=== PATIENT | male | born 1955 | race Two or more races ===

== ENCOUNTER 2016-04-30 07:22 | Day surgery (SDC) | payer OTHER ==
[2016-04-30] MEDS ORDERED: fentaNYL 100 MCG/2 ML INJ ONE ×2 (07:53→10:12)
[2016-04-30] MEDS ORDERED: MIDAZOLAM 2 MG/2 ML VIAL ONE ×2 (07:53→10:13)
[2016-04-30] MEDS ORDERED: LIDO/EPI 1% **for epidural** 30 ML SDV ONE (08:24)
[2016-04-30] MEDS ORDERED: SODIUM TETRADECYL SULFATE 60 MG/2 ML VIAL IV ONE (08:24)
[2016-04-30] MEDS ORDERED: CEFAZOLIN 2 GM/DEXTROSE/100 ML BAG IV ONE (09:52)
[2016-04-30] MEDS ORDERED: LABETALOL HCL 5 MG/ML 20 ML MDV ONE (11:40)
[2016-04-30] MEDS ORDERED: IBUPROFEN 200 MG TAB PO ONE ×2 (13:31→13:34)
[2016-04-30] MEDS ORDERED: ONDANSETRON 4 MG/2 ML VIAL IVP PRN (13:34)
[2016-04-30] MEDS ORDERED: HYDROCODONE/APAP 5/325 TAB PO PRN (13:34)
[2016-04-30] MEDS ORDERED: ONDANSETRON DISINTEGRATING 4 MG TAB PO PRN (13:35)
[2016-04-30] MEDS ORDERED: IOPAMIDOL (ISOVUE-300) 100 ML BTL IV ONE (15:43)
--- NOTE | 2016-04-30 20:05 | IR ---
Bilateral Laser Ablation, Great Saphenous Veins Indication: Extensive the bilateral lower extremity venous stasis cellulitis and ulceration. Please s ee prior ultrasound for details. Informed consent: Obtained from the patient. Risks and benefits were discussed. Crosscutting Measure: Patient's current list of medications including all known prescriptions, over- the-counters, herbals, and vitamin/mineral/dietary supplements are reviewed. Medications' name, dosa ge, frequency, and route of administration are confirmed. Patient is a non-smoker. Prophylactic Antibiotic: Ancef 2 gm was ordered and administered for antimicrobial prophylaxis. Discontinuation of Prophylactic Antibiotic: Prophylactic antibiotic was given within 4 hours prior t o incision. There was an order to discontinue the antibiotic within 24 hours of procedure end time. VTE Prophylaxis: VTE prophylaxis is not medically necessary for this procedure. Technique: Patient is placed in supine position. A "timeout" procedure was performed to identify th e correct patient and the correct procedure. 1% Xylocaine was used for local anesthetic. All elemen ts of maximal sterile barrier technique including cap, mask, sterile gown, sterile gloves, large ster ile sheet, hand hygiene, and 2% chlorhexidine for cutaneous antisepsis, followed. When ultrasound is used, sterile gel and probe covers are used. Ultrasound evaluation of potential access site was performed. After successfully identifying a patent vessel, ultrasound guidance was used to puncture the vessel. A permanent recording was created for t he patient's record. When ultrasound is used, sterile gel and probe covers are used. This procedure was performed with a combination of ultrasound and fluoroscopy. Because of patient's b neno habitus, I was not able to see the saphenofemoral junction very well with ultrasound alone. Once the great saphenous veins are accessed under ultrasound guidance at the level of the proximal ca lf on each side, Glidewire is advanced into the deep system. A straight tipped 5-Armenian end-hole cath eter is advanced over the Glidewire, and the wire was removed. Contrast was injected as the catheter was pulled back, identifying saphenofemoral junction, with the catheter subsequently pulled back 2 cm from saphenofemoral junction. Prior to this, laser wire was advanced through the catheter, and locked in place with a Please review [trocar device] and a Ta-Kylah, with the tip extending 1 cm from the tip of the catheter. Once the catheter tip is in good position, the laser wire was advanced with the Tam and yvette e review [torquer] device in place. Once the entire system is locked together, we know the tip of the laser is a centimeter beyond the tip of the catheter. The laser is not radiopaque, therefore, its pl acement cannot be confirmed by fluoroscopy. The next challenge was tumescent anesthesia. I really had to guesstimate where to inject the tumescen t. This was done for the most part using landmarks, and under ultrasound guidance. This is also done using a 22-gauge spinal needle. After tumescent anesthesia is delivered, laser ablation was performed. Patient tolerated it very well . It seems that the tumescent anesthesia was indeed adequate throughout the course of the great saphe nous system on both sides. 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 I do not at this time feel need to treat this demolition hammer operator any further. Patient's wounds were dressed in standard fashion and wrapped. Pantyhose compression stocking was the n put on with the help of the patient. Fluoroscopy: 1.8 minutes, 3 images. Medication: 4.5 mg Versed, 2 25 mcg fentanyl, -03 11 Impression: 1. Combined ultrasound-guided and fluoroscopy guided great saphenous vein ablation of both legs from calf to saphenofemoral junction. 2. No additional vessels that would need to be treated at this time. Plan: 1. Pantyhose compression stocking for the next 5 days, 24 hours. 2. Wound care follow up next Thursday as previously planned. 3. Knee high compression stocking and minimal after 5 days until wounds heal.
== END 2016-04-30 15:15 | disposition home or self-care (01) ==
LOC: FIMAGING 07:22
PROVIDERS: ATTEND Surgery
PROC: 065Q3ZZ Destruction of Left Saphenous Vein, Percutaneous Approach (ICD-10-PCS; principal; 2016-04-30 13:00)
PROC: 065P3ZZ Destruction of Right Saphenous Vein, Percutaneous Approach (ICD-10-PCS; principal; 2016-04-30 13:00)
DX: I83.019 Varicose veins of right lower extremity with ulcer of unspecified site (principal); I83.029 Varicose veins of left lower extremity with ulcer of unspecified site
CPT/HCPCS: 36478; 99152; 99153; C1769; J0690; J2250; J2405; J3010; J3490; Q9967

== ENCOUNTER → 2016-07-01 | Outpatient (CLI) | payer OTHER | LOC: FIMAGING 11:13 | PROVIDERS: ATTEND Radiology Diagnostic Radiology | DX: I82.813 Embolism and thrombosis of superficial veins of lower extremities, bilateral (principal) ==

== ENCOUNTER 2016-07-22 11:20 | Day surgery (SDC) | payer OTHER ==
[2016-07-22] MEDS ORDERED: ONDANSETRON 4 MG/2 ML VIAL IVP ONE (11:44)
[2016-07-22] MEDS ORDERED: NS 1,000 ML IV ONE (11:44)
[2016-07-22] MEDS ORDERED: MIDAZOLAM 2 MG/2 ML VIAL ONE ×2 (12:19→14:13)
[2016-07-22] MEDS ORDERED: fentaNYL 100 MCG/2 ML INJ ONE ×2 (12:19→14:12)
[2016-07-22] MEDS ORDERED: SODIUM TETRADECYL SULFATE 60 MG/2 ML VIAL IV ONE (12:45)
[2016-07-22] MEDS ORDERED: LIDO/EPI 1% **for epidural** 30 ML SDV ONE (12:45)
== END 2016-07-22 15:55 | disposition home or self-care (01) ==
LOC: FIMAGING 11:20
PROVIDERS: ATTEND Radiology Diagnostic Radiology
DX: I83.012 Varicose veins of right lower extremity with ulcer of calf (principal); L97.219 Non-pressure chronic ulcer of right calf with unspecified severity; I83.013 Varicose veins of right lower extremity with ulcer of ankle; L97.319 Non-pressure chronic ulcer of right ankle with unspecified severity; I83.022 Varicose veins of left lower extremity with ulcer of calf; L97.229 Non-pressure chronic ulcer of left calf with unspecified severity; I83.023 Varicose veins of left lower extremity with ulcer of ankle; L97.329 Non-pressure chronic ulcer of left ankle with unspecified severity
CPT/HCPCS: J2250; J3010

== ENCOUNTER → 2016-11-07 | Day surgery (SDC) | payer OTHER ==
[~2016-11-07] MED LIST: SODIUM TETRADECYL SULFATE 60 MG/2 ML VIAL IV ONE
== END | disposition home or self-care (01) ==
LOC: FIMAGING 08:12
PROVIDERS: ATTEND Radiology Diagnostic Radiology
PROC: 3E033TZ Introduction of Destructive Agent into Peripheral Vein, Percutaneous Approach (ICD-10-PCS; principal; 2016-11-07)
DX: I83.019 Varicose veins of right lower extremity with ulcer of unspecified site (principal); I83.892 Varicose veins of left lower extremity with other complications; L97.919 Non-pressure chronic ulcer of unspecified part of right lower leg with unspecified severity; L03.116 Cellulitis of left lower limb; R60.9 Edema, unspecified

== ENCOUNTER → 2017-03-25 | Outpatient (CLI) | payer OTHER | LOC: FIMAGING 07:11 | PROVIDERS: ATTEND Radiology Diagnostic Radiology | DX: L97.811 Non-pressure chronic ulcer of other part of right lower leg limited to breakdown of skin (principal); I87.2 Venous insufficiency (chronic) (peripheral); L97.829 Non-pressure chronic ulcer of other part of left lower leg with unspecified severity ==

== ENCOUNTER → 2017-05-25 | Outpatient (CLI) | payer OTHER ==
[~2017-05-25] MED LIST changes: +IOPAMIDOL (ISOVUE-370) 150 ML BTL IV ONE; -SODIUM TETRADECYL SULFATE 60 MG/2 ML VIAL IV ONE
== END ==
LOC: FIMAGING 09:39
PROVIDERS: ATTEND Surgery
DX: I87.1 Compression of vein (principal); L97.811 Non-pressure chronic ulcer of other part of right lower leg limited to breakdown of skin; L97.821 Non-pressure chronic ulcer of other part of left lower leg limited to breakdown of skin; K76.0 Fatty (change of) liver, not elsewhere classified
CPT/HCPCS: Q9967